=== PATIENT | female | born 1945 | race Caucasian/White ===

== ENCOUNTER → 2017-06-16 | Outpatient (CLI) | payer MEDICARE ==
[~2017-06-16] MED LIST: ABILIFY15 MG PO; ACETAMINOPHEN325 M1 PO; BENADRYL25 M1 PO; DITROPAN 5MG TAB5 MG PO; INDOCIN25 MG PO; LEVAQUIN500 MG PO; LITHIUM CARB 3300 MG OR; MEDROL 4MG. DOSE4 MG PO; OGEN 0.625MG0.625 MG OR; SALINE FLUSH 1010 ML IV; SEROQUEL300 MG PO; TRAZODONE150 MG PO; WELLBUTRIN SR100 MG PO
[2017-06-16 08:05] LABS: HEMOGLOBIN 13.9 g/dL (12.2-16.2); LYMPH # 1.3 K/mm3 (0.7-4.5); LYMPH % 20.2 % (10-50.0)
[2017-06-16 09:16] LABS: BUN 13 mg/dL (7-18)
[2017-06-16 09:17] LABS: GFR (ESTIMATED) 71 ML/MIN (59-)
== END ==
LOC: LAB 07:04
PROVIDERS: Internal Medicine Adolescent Medicine
DX: E78.5 Hyperlipidemia, unspecified (principal); F31.9 Bipolar disorder, unspecified; Z86.2 Personal history of diseases of the blood and blood-forming organs and certain disorders involving the immune mechanism